=== PATIENT | female | born 1955 | race Caucasian/White ===

== ENCOUNTER → 2017-08-05 | Day surgery (SDC) | payer OTHER ==
[~2017-08-05] VITALS: Ht 165.1 cm; Wt 72.0 kg
[~2017-08-05] MED LIST: *MEPERIDINE 25 MG INJ VIAL PERIprocedural Use ONLY ONE; ALPR.5 PO; CHLORHEXIDINE GLUCONATE 2 % 1 PACK (2 CLOTHS) TOPICAL PRN; INSULIN HUMAN REGULAR 1,000 UNITS/10 ML VIAL SQ PRN; LACTATED RINGER'S 1000 ML IV PRN; METOPROLOL TARTRATE 25 MG TAB PO PRN; MIDAZOLAM HCL 2 MG/2 ML VIAL ONE; ONDANSETRON HCL 4 MG/2 ML VIAL IV PUSH ONE; POVIDONE IODINE 5% (ANTISEPSIS KIT) 4 APPLICATIONS EACH NARE PRN; PROPOFOL 200 MG/20 ML AMP IV ONE; SODIUM CHLORID 0.9% 500 ML IV PRN; VENL100T PO; VENL37.5 PO; ePHEDrine/NS 25 MG/5 ML SYR IV ONE
[2017-08-05 07:09] LABS: AUTOMATED NEUTROPHIL # 2.6 TH/MM3 (1.8-7.7); BASOPHIL # 0.1 TH/MM3 (0-0.2); EOSINOPHIL # 0.1 TH/MM3 (0-0.4); EOSINOPHIL % 2.8 % (0.0-4.0); HEMATOCRIT 39.7 % (35.0-46.0); HEMOGLOBIN 13.1 GM/DL (11.6-15.3); LYMPH % 35.1 % (9.0-44.0); LYMPHOCYTE # 1.8 TH/MM3 (1.0-4.8); MEAN CELL VOLUME 88.6 FL (80.0-100.0); MEAN CORPUSCULAR HEMOGLOBIN 29.4 PG (27.0-34.0); MEAN CORPUSCULAR HGB CONC 33.2 % (32.0-36.0); MEAN PLATELET VOLUME 7.9 FL (7.0-11.0); MONO % 10.8 % (0.0-8.0); MONOCYTE # 0.5 TH/MM3 (0-0.9); NEUT % 50.3 % (16.0-70.0); PLATELET COUNT 255 TH/MM3 (150-450); RED BLOOD COUNT 4.47 MIL/MM3 (4.00-5.30); RED CELL DISTRIBUTION WIDTH 12.8 % (11.6-17.2); WHITE BLOOD COUNT 5.1 TH/MM3 (4.0-11.0)
[2017-08-05 07:15] LABS: BILIRUBIN, URINE NEG (NEG); GLUCOSE,URINE NEG (NEG); KETONE, URINE NEG (NEG); NITRITE,URINE NEG (NEG); URINE LEUKOCYTE ESTERASE SMALL (NEG)
[2017-08-05 07:16] LABS: BLOOD, URINE TRACE (NEG)
[2017-08-05 07:17] LABS: URINE COLOR YELLOW (YELLW/STRAW)
[2017-08-05] MEDS: ceFAZolin 1,000 MG/NS 100 ML IV SCH ×4 (07:26→07:37)
[2017-08-05 08:43] VITALS: PULSE 94
--- NOTE | 2017-08-05 08:49 | PD.OP ---
Operative Report Date of Surgery: Aug 05, 2017 Preoperative Diagnosis: (1) Postmenopausal bleeding (2) Submucous myoma of uterus Postoperative Diagnosis: (1) Polyp of corpus uteri (2) Fibroids, intramural (3) Postmenopausal bleeding Procedure: Hysteroscopic polypectomy using myosure device Anesthesia: Dr. Preston PEREZ Surgeon: Ngoc Bray Graphic Coordinator(s): Kyrie Resident Surgeon: n/a Operation and Findings: Indications: [-Patient with postmenopausal bleeding, on ultrasound was found to have what was thought to be a submucous fibroid. Myosure resection posted.] Findings: Patient was found on hysteroscopic view to have [a polyp on the anterior wall of the uterus. Despite endometrial resection over the fibroid, it was not seen hysteroscopically. Procedure: Patient was brought to the OR and laid supine on the table. After inducing general anesthesia she was positioned in low stirrups in dorso- lithotomy position. An open-sided speculum was placed in the vagina after Betadine prep and time out. The anterior lip of the cervix was grasped with a single tooth tenaculum, and the cervix was dilated to accept a myomectomy rigid hysteroscope. After viewing and taking pictures, the polyp was excised using the myosure device. The endometrium was the thoroughly sampled posteriorly using the myosure again. The position of the fibroid was known due to having the imaging in the OR. Moderate tissue returned. Since the patient's bleeding likely came from the polyp, and the fibroid was evidently intramural, the procedure was stopped. Fluid deficit was 1500 cc but the patient did well throughout the case. The procedure being complete, the instruments were removed, the patient was replaced supine and she was awakened. She was transferred to the PACU breathing on her own in stable condition. Sponge, needle, and instrument counts were correct. Ngoc Bray MD Aug 05, 2017 08:49
[2017-08-05 09:08] LABS: BACTERIA, URINE FEW /hpf; RBC, URINE 0-3 /hpf (0-3); SQUAMOUS EPITHELIAL CELL URINE 0-5 /hpf (0-5)
[2017-08-05 09:30] VITALS: PULSE 69; TEMP 97.8
[2017-08-05 10:20] VITALS: BP 128/76; PULSE 87; RESP 16; O2SAT 98
--- NOTE | 2017-08-05 15:19 | EKG ---
Date Performed: 08/05/2017 Time Performed: 07:12:06 PTAGE: 62 years EKG: Sinus rhythm PVC NORMAL ECG NO PREVIOUS TRACING DOCTOR: Kati Murillo Interpretating Date/Time 08/05/2017 15:18:35
--- NOTE | 2017-08-05 15:19 | EKG ---
Date Performed: 08/05/2017 Time Performed: 07:12:06 PTAGE: 62 years EKG: Sinus rhythm PVC NORMAL ECG NO PREVIOUS TRACING DOCTOR: Kati Murillo Interpretating Date/Time 08/05/2017 15:18:35
--- NOTE | 2017-08-05 15:19 | EKG ---
Date Performed: 08/05/2017 Time Performed: 07:12:06 PTAGE: 62 years EKG: Sinus rhythm PVC NORMAL ECG NO PREVIOUS TRACING DOCTOR: Kati Murillo Interpretating Date/Time 08/05/2017 15:18:35
== END | disposition home or self-care (01) ==
LOC: PHSDC 06:12
PROVIDERS: ATTEND Obstetrics & Gynecology
DX: N84.0 Polyp of corpus uteri (principal); D25.1 Intramural leiomyoma of uterus; N95.0 Postmenopausal bleeding; N95.1 Menopausal and female climacteric states; R23.2 Flushing; E78.2 Mixed hyperlipidemia; Z01.810 Encounter for preprocedural cardiovascular examination
CPT/HCPCS: 00952; 36415; 58558; 81001; 85025; 88305; 93005; J0690; J2175; J2250; J2405; J3010; J7120